=== PATIENT | male | born 1985 | race African-American/Black ===

== ENCOUNTER 2022-12-18 17:41 | Emergency (ER) | payer SELFPAY ==
--- NOTE | ~2022-12-18 | XR_ITS ---
EXAMINATION: XR chest 2V 12/18/2022 18:45 INDICATION: Shortness of breath PROCEDURE: 2 view chest COMPARISON: No prior studies for comparison. FINDINGS: The lungs are clear. The cardiomediastinal silhouette is within normal limits. There are no pleural effusions. There is no pneumothorax suspected. IMPRESSION: 1: NO ACUTE CARDIOPULMONARY DISEASE. Reviewed, dictated and finalized at location A.
[2022-12-18 18:12] VITALS: BP 150/99; PULSE 82; RESP 20; TEMP 36.5; O2SAT 100
--- NOTE | 2022-12-18 18:15 | ECG_ITS ---
Measurements Intervals [place] Rate: 85 P: 46 ID: [id number] QRS: 9 QRSD: 78 T: 22 QT: 339 QTc: 405 Interpretive Statements SINUS RHYTHM WITHIN NORMAL LIMITS NO PREVIOUS ECG AVAILABLE FOR COMPARISON Electronically Signed On 12-19-2022 15:43:49 CDT by Dillon Morse M.D.
[2022-12-18 18:33] LABS: Basophils Percent Auto 0.3 % (0.2-1.2); Eosinophils Absolute Auto 0.3 K/mm3 (0-0.3); Eosinophils Percent Auto 3.2 % (0-4.4); Hematocrit 40.9 % (37.0-47.0); Hemoglobin 12.5 g/dL (12.0-15.0); Immature Granulocyte Absolute 0.02 K/mm3 (0.00-0.031); Immature Granulocyte Percent A 0.3 % (0-0.5); Lymphocytes Absolute Auto 1.72 K/mm3 (0.9-3.2); Lymphocytes Percent Auto 22.1 % (18.3-44.2); Mean Corpuscular HGB Conc 30.6 g/dl (32-36); Mean Corpuscular Hemoglobin 25.3 pg (26-34); Mean Corpuscular Volume 82.8 fl (80-100); Mean Platelet Volume 10.1 fl (7.4-10.4); Monocytes Absolute Auto 0.6 K/mm3 (0.1-0.6); Monocytes Percent Auto 7.2 % (2.6-8.5); Neutrophils Absolute Auto 5.2 K/mm3 (1.3-6.7); Neutrophils Percent Auto 66.9 % (45.5-73.1); Platelet Count Result 233 k/mm3 (150-375); Red Blood Count 4.94 M/mm3 (4.2-5.4); Red Cell Distribution Width 14.6 % (11.5-14.5); White Blood Count 7.8 K/mm3 (4.5-10.0)
[2022-12-18 18:44] LABS: Alanine Aminotransferase 19 U/L (6-35); Albumin Level 3.8 g/dL (3.5-5.1); Alkaline Phosphatase 96 U/L (38-126); Anion Gap 4 mmol/L (8-16); Aspartate Amino Transferase 23 U/L (14-36); Bilirubin,Total 0.3 mg/dL (0.2-1.3); Blood Urea Nitrogen 12 mg/dL (7-17); Calcium 8.6 mg/dL (8.4-10.2); Carbon Dioxide 32 mmol/L (22-30); Chloride 104 mmol/L (98-107); Estimated CRCL calculation 101 ml/min; Estimated Glomerular Filt Rate 50; Glucose 96 mg/dL (65-110); INR 0.9; Lipase 146 U/L (23-300); Prothrombin Time 12.9 Seconds (11.1-14.7); Sodium 140 mmol/L (137-145)
[2022-12-18 18:45] LABS: Partial Thromboplastin Time 37.1 SECONDS (22.3-36.8)
[2022-12-18 18:55] LABS: Troponin I < 0.012 ng/mL (0.000-0.034)
[2022-12-18 19:15] VITALS: BP 182/109; PULSE 80; PULSE 82; RESP 16; O2SAT 100
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
[2022-12-18] MEDS: ACETAMINOPHEN 500 MG TABLET 1000 MG PO (20:55)
[2022-12-18] MEDS: IBUPROFEN 400 MG TABLET 800 MG PO (20:55)
[2022-12-18 21:10] VITALS: BP 168/98; PULSE 75; RESP 16; O2SAT 98
== END 2022-12-18 21:10 | disposition home or self-care (01) ==
PROVIDERS: Emergency Medicine; Emergency Provider Emergency Medicine
DX: R52 Pain, unspecified (principal); I10 Essential (primary) hypertension; S90.822A Blister (nonthermal), left foot, initial encounter; S90.821A Blister (nonthermal), right foot, initial encounter; Z59.00 Homelessness unspecified; X58.XXXA Exposure to other specified factors, initial encounter
CPT/HCPCS: 36415; 71046; 80053; 83690; 84484; 85025; 85610; 85730; 93005; 99284; A9270